=== PATIENT | male | born 1930 | race Caucasian/White ===

== ENCOUNTER 2021-02-16 20:01 | Emergency (ER) | payer MEDICARE, OTHER ==
[2021-02-16] MEDS ORDERED: Lidocaine 5% 700 MG Patch TRDERM ONE (22:46)
--- NOTE | 2021-02-17 00:40 | CT ---
For Patients: As a result of the Century Cures Act, medical imaging exams and procedure reports are released immediately into your electronic medical record. You may view this report before your referring provider. If you have questions, please contact your health care provider. INDICATION: Lower back, pelvis pain TECHNIQUE: CT lumbar spine without i.v. contrast. Coronal and sagittal reformats were obtained. COMPARISON: 09/30/2018 FINDINGS: Alignment: Unremarkable. Bone: No acute fractures or aggressive bone lesions are identified. Total laminectomies of L4 and L5 noted. Disc: Moderate degenerative disc narrowing of L1-2, L3-4 and L4-5 present with vacuum phenomena seen at L4-5. Posterior disc osteophyte complexes are present at every level. Diffuse bilateral facet osteoarthritis is present and most severe at L4-5 and L5-S1. Soft tissue: The perivertebral soft tissues and visualized retroperitoneum are unremarkable in appearance. Multiple calcified bladder stones are present measuring up to 2 cm. Severe enlargement of the prostate gland is noted. Mild ectasia of the infrarenal aorta is present measuring 2.5 cm. A 4 mm stone is noted in the lower pole of the left kidney. Small left pleural effusion is present. IMPRESSIONS: 1. No acute osseous injuries are identified. 2. Multiple calcified bladder stones are present measuring up to 2 cm. Severe enlargement of the prostate gland is noted. Dictated by Cedric Good MD @ 02/17/2021 12:38:17 AM Please note that all CT scans at this facility use dose modulation, iterative reconstruction, and/or weight-based dosing when appropriate to reduce radiation dose to as low as reasonably achievable. Dictated by: Cedric Good MD @ 02/17/2021 00:38:23 (Electronically Signed)
--- NOTE | 2021-02-17 00:46 | CT ---
For Patients: As a result of the Century Cures Act, medical imaging exams and procedure reports are released immediately into your electronic medical record. You may view this report before your referring provider. If you have questions, please contact your health care provider. INDICATION: Lower back, pelvis pain TECHNIQUE: CT pelvis without i.v. contrast. Coronal and sagittal reformats were obtained. COMPARISON: 09/30/2018 FINDINGS: Bone: No acute fractures or aggressive bone lesions are identified. Joint: Mild joint space narrowing is seen in the hip joints bilaterally. No significant hip effusion is seen. The visualized sacroiliac joints are unremarkable in appearance. The pubic symphysis is normal in appearance. Soft tissue: Unremarkable. There is a gasless density near the ileocecal valve without any apparent obstruction of the terminal ileum. This is most likely due to small bowel contents incompletely mixing with cecal stool. No radiopaque foreign bodies are seen. Massive, stable enlargement of the prostate gland is noted. Multiple calcified bladder stones are present measuring up to 2 cm. IMPRESSIONS: 1. Massive, stable enlargement of the prostate gland is noted. Correlation with physical examination and PSA levels are recommended. 2. Multiple calcified bladder stones are present measuring up to 2 cm. Dictated by Cedric Good MD @ 02/17/2021 12:44:18 AM Please note that all CT scans at this facility use dose modulation, iterative reconstruction, and/or weight-based dosing when appropriate to reduce radiation dose to as low as reasonably achievable. Dictated by: Cedric Good MD @ 02/17/2021 00:44:20 (Electronically Signed)
--- NOTE | 2021-02-17 01:12 | EDM.PDOC ---
ED HPI GENERAL MEDICAL PROBLEM - General Chief Complaint: Back Pain or Injury Stated Complaint: BACK PAIN Time Seen by Provider: 02/16/21 21:58 - History of Present Illness INITIAL COMMENTS - FREE TEXT/NARRATIVE: CHIEF COMPLAINT(S): "Back trouble." HISTORY OF PRESENT ILLNESS: This is a 89-year-old man with a past medical history of multilevel degenerative disc disease in the lumbar spine who comes to the emergency department with a chief complaint of "back trouble.". The patient states that for approximately 3 weeks now his lower back has been hurting. He states that it is so painful that it takes his breath away. He describes his pain as 7 out of 10 and aching. He denies any radiation of this pain. He denies any numbness, urinary incontinence, bowel incontinence, saddle anesthesia, fever, redness or rash. He denies any IV drug use. He states that movement does help the pain. He denies any other symptoms at all whatsoever. REVIEW OF SYSTEMS: Constitutional: Denies fever, chills. Eyes: Denies eye pain Ears, Nose, Mouth, & Throat: Denies earache Cardiovascular: Denies chest pain Respiratory: Denies shortness of breath Gastrointestinal: Denies Nausea, vomiting, diarrhea, hematochezia, bowel incontinence Genitourinary: Denies hematuria, urinary incontinence Skin:Denies a rash MSK: Positive for lower back pain Neurological: Denies blurred vision, saddle anesthesia, numbness, tingling, weakness Psychiatric: Denies depression PAST MEDICAL HISTORY: As per history of present illness and as reviewed below otherwise noncontributory. SURGICAL HISTORY: As per history of present illness and as reviewed below otherwise noncontributory. SOCIAL HISTORY: As per history of present illness and as reviewed below otherwise noncontributory. FAMILY HISTORY: As per history of present illness and as reviewed below otherwise noncontributory. EXAMINATION OF ORGAN SYSTEMS/BODY AREAS: Constitutional: Blood pressure was 146/61, heart rate 66, respiratory rate 18 with an oxygen saturation 95% on room air. Temperature 36.7 General: Overall well-appearing elderly man who is in no acute distress Psychiatric: Appropriate mood and affect. Eyes: No scleral icterus or conjunctival erythema ENMT: Moist mucous membranes. No pharyngeal erythema Cardiovascular: Regular, rate, and rhythm. No gallops, murmurs, or rubs. Bilateral upper extremity pulses symmetric and intact. No peripheral edema. No JVD. Respiratory: Lungs clear to auscultation bilaterally. No wheezes, rales, or rhonchi. Gastrointestinal: Soft, non-tender, non-distended. Normoactive bowel sounds Genitourinary: No suprapubic tenderness Musculoskeletal: Normal range of motion. There is midline lumbar tenderness and paraspinal muscle tenderness that extends down just above the gluteal crease. There is no overlying skin changes. Skin: No lesions or abrasions. Neurological: Alert, GCS 15 distal sensation is intact. Strength is 5 out of 5 in bilateral upper and lower extremities. MEDICAL DECISION MAKING AND COURSE IN THE ED WITH INTERPRETATION/REVIEW OF DIAGNOSTIC STUDIES: This is a 89-year-old man and with a past medical history of multilevel degenerative disc disease of the lumbar spine who comes to the emergency department with acute exacerbation of chronic lower spine pain who has midline spine pain and upper sacral pain. At this time we will obtain a repeat CT of the lumbar spine and pelvic CT. I did discuss with patient that at this time given his age I am concerned about multiple different treatments given that he is at high risk of falling. I discussed with him that I do not want to give him any muscle relaxers, opiates, NSAIDs given his decreased GFR. I did discuss them that we could try a lidocaine patch. He was amenable to this plan. The radiological images were viewed by myself along with reading the report from the radiologist. Lumbar spine CT without contrast does not reveal any acute osseous injuries. There is moderate degenerative disc narrowing of L1-L2, L3-L4 and L4-L5. Flatbed Stitcher ior disc osteophyte complexes are present at every level. There is diffuse bilateral facet osteoarthritis which is most severe at L4-L5 L5-S1. There is bladder stones. Pelvic CT without contrast reveals massive stable enlargement of the prostate gland. Multiple calcified stones. There is mild joint space narrowing seen in the hip joints bilaterally. No effusion seen. Sacroiliac joints are un remarkable. No fractures or aggressive lesions. On reevaluation the patient reported significant improvement in his pain and was able to sit and stand without any issue. I did discuss his results at this time. I did encourage the patient to follow-up with his primary care physician to discuss further treatment plans for his back pain. He is to return if he has any red flag symptoms as discussed with him. He was amenable discharge at this time and had no further questions DISPOSITION: The patient was discharged home in stable condition. The patient will follow up with primary care physician in 3 to 5 days CONDITION: Fair PROCEDURES: None FINAL IMPRESSION(S)/DIAGNOSES: 1. Acute on chronic lumbar spinal pain secondary to multilevel degenerative disc disease Micheal Menezes M.D. Middle Back Pain Score (Numeric/FACES): 7 - Related Data Allergies Allergy/AdvReac Type Severity Reaction Status Date / Time Penicillins Allergy Shortness Verified 02/16/21 21:40 of Breath Home Meds: Home Meds Aspirin/Dipyridamole [Aggrenox 200-25 MG] 1 tab PO DAILY 09/30/18 [History] Finasteride 5 mg PO DAILY 09/30/18 [History] Fluticasone Propion/Salmeterol [Advair 250-50 Diskus] 1 - 2 puff INH DAILY 09/30/18 [History] atenoloL [Atenolol] 50 mg PO DAILY 09/30/18 [History] atorvaSTATin [Lipitor] 10 mg PO DAILY 09/30/18 [History] Ciprofloxacin HCl [Cipro] 500 mg PO BID #20 tablet 02/28/19 [Rx] Cyanocobalamin (Vitamin B12) [Vitamin B12] 1,000 mcg PO DAILY 02/28/19 [History] Diclofenac Sodium [Voltaren] 50 mg PO BIDAC 02/28/19 [History] Phenazopyridine HCl [Pyridium] 200 mg PO TID #9 tablet 02/28/19 [Rx] Lidocaine 5% [Lidoderm 5%] 1 patch TOP DAILY #10 patch 02/17/21 [Rx] Past Medical History HEENT History: Reports: Impaired Vision Other HEENT History: wears glasses Cardiovascular History: Reports: High Cholesterol Respiratory History: Reports: COPD, SOB Musculoskeletal History: Reports: Arthritis, Back Pain, Chronic Neurological History: Reports: CVA - Infectious Disease History Infectious Disease History: Reports: Chicken Pox, Measles, Mumps - Past Surgical History Head Surgeries/Procedures: Reports: None GI Surgical History: Reports: Cholecystectomy Musculoskeletal Surgical History: Reports: Other (See Below) Other Musculoskeletal Surgeries/Procedures:: back sx Social & Family History - Family History Family Medical History: No Pertinent Family History - Tobacco Use Tobacco Use Status *Q: Never Tobacco User - Caffeine Use Caffeine Use: Reports: Coffee - Recreational Drug Use Recreational Drug Use: No ED ROS GENERAL - Review of Systems Review Of Systems: See Below ED EXAM, GENERAL - Physical Exam Exam: See Below Course - Vital Signs Last Recorded V/S: Last Vital Signs Temp 36.7 C 02/16/21 21:40 Pulse 65 02/17/21 01:33 Resp 17 02/17/21 01:33 BP 138/75 02/17/21 01:33 Pulse Ox 95 02/17/21 01:33 - Orders/Labs/Meds Meds: Medications Discontinued Medications Generic Name Dose Route Start Last Admin Trade Name Selvin PRN Reason Stop Dose Admin Lidocaine 700 mg 02/16/21 22:46 02/16/21 23:26 Lidocaine 5% 700 Mg Patch TRDERM 02/16/21 22:47 700 mg ONETIME ONE Administration Departure - Departure Time of Disposition: 01:11 Disposition: Home, Self-Care 01 Condition: Fair Clinical Impression: Osteoarthritis of lumbar spine - Discharge Information *PRESCRIPTION DRUG MONITORING PROGRAM REVIEWED*: No *COPY OF PRESCRIPTION DRUG MONITORING REPORT IN PATIENT NICK: No Prescriptions: Lidocaine 5% [Lidoderm 5%] 1 patch TOP DAILY #10 patch Instructions: Arthritis, [id number] Referrals: Rajat Gentile MD [Primary Care Provider] - Forms: ED Department Discharge Additional Instructions: You were evaluated today on an emergent basis. At this time you did not have any red flag symptoms of back pain including fever, rash over your spine, tenderness in one spot in the middle of your spine, urinating on yourself, pooping on yourself, or decreased sensation after wiping after having a bowel movement. If you have any of the symptoms I want you to return to the emergency department. We did obtain imaging and there was some spinal disc narrowing with some calcium at every level and there is osteoarthritis which is worse in your lower back. At this time I do recommend you continue your diclofenac as prescribed. As discussed you stated that your physician told you not to take Tylenol. You did find significant relief with the lidocaine patch while in the emergency department. At this time I will prescribe you with the lidocaine patch and I would like you to follow-up with your primary care physician within 3 to 5 days. [facility] [address] [place] [id number] [facility] [address] [place] [id number] The patient is informed of any results of their evaluation and diagnostic workup and all questions are answered. They are given discharge instructions and return precautions. The patient is stable for discharge. The patient states they understand and agree with the plan and that they will return if their symptoms get worse or if they have any new concerns. The following information is given to patients seen in the emergency department who are being discharged to home. This information is to outline your options for follow-up care. We provide all patients seen in our emergency department with a follow-up referral. The need for follow-up, as well as the timing and circumstances, are variable depending upon the specifics of your emergency department visit. If you don't have a primary care physician on staff, we will provide you with a referral. We always advise you to contact your personal physician following an emergency department visit to inform them of the circumstance of the visit and for follow-up with them and/or the need for any referrals to a consulting specialist. The emergency department will also refer you to a specialist when appropriate. This referral assures that you have the opportunity for follow-up care with a specialist. All of these measure are taken in an effort to provide you with optimal care, which includes your follow-up. Under all circumstances we always encourage you to contact your private physician who remains a resource for coordinating your care. When calling for follow-up care, please make the office aware that this follow-up is from your recent emergency room visit. If for any reason you are refused follow-up, please contact the [facility] Emergency Department at and asked to speak to the emergency department charge nurse. Sepsis Event Note (ED) - Evaluation Sepsis Screening Result: No Definite Risk
== END 2021-02-17 01:34 | disposition home or self-care (01) ==
LOC: MW.ED 20:01
DX: M51.36 Other intervertebral disc degeneration, lumbar region (principal); M47.816 Spondylosis without myelopathy or radiculopathy, lumbar region; Z88.0 Allergy status to penicillin; E78.00 Pure hypercholesterolemia, unspecified; J44.9 Chronic obstructive pulmonary disease, unspecified; Z79.82 Long term (current) use of aspirin; Z79.899 Other long term (current) drug therapy
CPT/HCPCS: 72131; 72192; 99283; A9270